=== PATIENT | female | born 1970 | race Caucasian/White ===

== ENCOUNTER 2021-07-14 06:26 | Outpatient (CLI) | payer BC, SELFPAY ==
[2021-07-14 07:38] LABS: Absolute Lymphocyte Count 1.72 X10^3/uL (0.83-4.51); Absolute Neutrophil Count 2.8 X10^3/uL (2.0-7.7); Basophil# 0.04 X10^3/uL; Basophil% 0.8 % (0-1); Eosinophil# 0.31 X10^3/uL; Hematocrit 41.4 % (37-47); Hemoglobin 13.2 g/dL (12.0-15.0); Lymphocyte # 1.72 X10^3/ul (0.83-4.51); Lymphocyte % 33.3 % (19-41); Mean Corp Hgb Conc 31.9 g/dL (32-36); Mean Corpuscular Hgb 29.1 pg (27.0-32.0); Mean Corpuscular Volume 91.4 fL (81-99); Mean Platelet Vol. 9.9 fl (6.2-12.0); Monocyte# 0.26 X10^3/uL; NRBC Flagged by Analyzer 0 % (0-5); Neutrophil # 2.83 X10^3/uL (2.7-7.7); Neutrophil % 54.9 % (47-70); Platelet Count 230 K/mm3 (150-450); RBC Distribution Width CV 12.7 % (11.6-14.6); RBC Distribution Width SD 42.2 fl (35.1-43.9); Red Blood Count 4.53 M/mm3 (4.2-5.4); White Blood Count 5.2 K/mm3 (4.4-11.0)
[2021-07-14 08:21] LABS: ALB/GLOB Ratio 1.1 RATIO (0.9-2.4); AST(SGOT) 13 U/L (15-37); Alanine Aminotransfer ALT/SGPT 21 U/L (13-56); Albumin, Serum 3.5 g/dL (3.2-5.0); Alkaline Phosphatase 63 U/L (45-117); Anion Gap 5 (5-15); BUN 14 mg/dL (7-18); BUN/Creat Ratio 16.8 RATIO (10-20); Chloride 106 mmol/L (98-107); Cholesterol 212 mg/dL (200); Creatinine, Serum 0.84 mg/dL (0.55-1.02); EST Glomerular Filtration Rate 77 mL/min (>60); Est Glom Filt Rate - Afr Amer 93 mL/min (>60); Globulin 3.2 g/dL (2.2-4.2); Glucose 101 mg/dL (74-106); High Density Lipoprotein 85 mg/dL; Potassium 3.9 mmol/L (3.5-5.1); Protein, Total 6.7 g/dL (6.4-8.2); Sodium Level 141 mmol/L (136-145); Thyroid Stim Hormone (TSH) 1.91 uIU/mL (0.358-3.74); Triglycerides 56 mg/dL; Very Low Density Lipoprotein 11 mg/dL (5-40)
== END 2021-07-14 23:59 | disposition home or self-care (01) ==
PROVIDERS: Visit Provider Student in an Organized Health Care Education/Training Program
DX: Z13.220 Encounter for screening for lipoid disorders (principal); Z13.1 Encounter for screening for diabetes mellitus; R53.83 Other fatigue
CPT/HCPCS: 36415; 80053; 80061; 84443; 85025

== ENCOUNTER → 2023-07-20 | Outpatient (CLI) | payer BC, SELFPAY ==
--- OUTSIDE RECORDS SUMMARY | 2023-07-20 09:46 | XMS RPT_ITS | CCD ---
Author Name Unknown Address [address] [place] [address] Organization [facility] Care Team Providers Care Brothel Keeper Name Role Phone Julito Whalen Unavailable Unavailable JULITO WHALEN Primary Care Unavailable Julito Whalen DO Primary Care Provider Allergies Allergy Classification Reported Allergen(s) Allergy Type Date of Onset Reaction(s) Facility (2 sources) HOMEOPATHIC PRODUCTS; Translations: [HOMEOPATHIC PRODUCTS] Propensity to adverse reactions to drug (disorder) 7 [facility] Repository (2 sources) RAGWEED; Translations: [RAGWEED] Propensity to adverse reactions (disorder) 7 [facility] Repository Medications Completed/Discontinued Medications Medication Drug Class(es) Dates Sig (Normalized) Sig (Original) Calcium Carbonate (1 source) calcium carbonat e (CALCIUM 300 ORAL) Take by mouth. 0 Active Problems Active Problems Problem Classification Problem Date Documented Da te Episodic/Chronic Menstrual disorders (2 sources) Dysmenorrhea; Translations: [Dysmenorrhea, unspecified] Onset: 04-11-2007 04-11-2007 Chronic Unclassified (1 source) Low back pain, unspecified; Translations: [Low back pain, unspecified] Onset: 07-05-2022 Past or Other Problems Problem Classification Problem Date Documented Da te Episodic/Chronic Abdominal pain (1 source) Pain in pelvis; Translations: [Pelvic and perineal pain] Episodic Other aftercare (4 sources) Patient encounter status; Translations: [Long-term (current) use of other medications] Episodic Other eye disorders (1 source) Excess skin of eyelid; Translations: [Dermatochalasis] Episodic Other non-traumatic joint disorders (1 source) Ankle pain; Translations: [Pain in joint, ankle and foot] Episodic Residual codes; unclassified (1 source) History of clinical finding in subject; Translations: [Personal history of other specified diseases] Episodic Sprains and strains (1 source) Strain of calf muscle; Translations: [Sprains and strains of other specified sites of knee and leg] Episodic NEGATED: Highlighted row has not occurred!Residual codes; unclassified (1 source) Disease Episodic Results Test Name Value Interpretation Reference Range Facil ity Encounters Encounter Date Encounter Type Care Provider Facility Start: 07-05-2022 ambulatory JULITO WHALEN Facility :[facility] Start: 07-05-2022 End: 07-05-2022 Subsequent hospital visit by physician Xr [facility] 2 [facility] Procedures Date Procedure Procedure Detail Performing Clinician Start: 07-05-2022 Radex spine lumbosac ral minimum 4 views Julito Whalen DO Work Phone: Hernia repair Julito Whalen History of Ear Press ure Equalization Tube, Insertion, Bilaterally Julito Whalen History of Oral Surg zoey Tooth Extraction Julito Whalen Plan of Treatment Date Care Activity Detail Author Start: 06-01-2025 LIPID SCREEN LIPID SCREEN [facility] Start: 06-01-2023 DIABETES SCREEN DIABETES SCREEN [facility] Start: 03-09-2022 Influenza vaccination INFLUENZA (#1) [facility] Start: 07-09-2021 DEPRESSION ASSESSMENT DEPRESSION ASS ESSMENT [facility] Start: 2021 SHINGRIX VACCINE (1 of 2) SHINGRIX V ACCINE (1 of 2) [facility] Start: 2016 COLOGUARD (FIT-DNA) COLOGUARD (FIT-D NA) [facility] Start: 2016 Colonoscopy COLONOSCOPY [facility] Start: 2016 COLORECTAL CANCER SCREENING COLORECTAL CANCER SCREENING [facility] Start: [address] COLONOGRAPHY [facility] Start: 2016 FECAL OCCULT BLOOD FECAL OCCULT BLOO D [facility] Start: 2016 SIGMOIDOSCOPY SIGMOIDOSCOPY [facility] Start: 2011 Mammography MAMMOGRAM [facility] Start: 04-09-2011 HPV TESTING HPV TESTING [facility] Start: 04-09-2011 PAP TESTING PAP TESTING [facility] Start: 1990 Urine microalbumin profile DTAP,TDAP ,TD (1 - Tdap) [facility] Start: 1971 COVID-19 VACCINE (#1) COVID-19 VACCI NE (#1) [facility] Start: 1971 HEPATITIS B (1 of 3 - 3-dose series) HEPATITIS B (1 of 3 - 3-dose series) [facility] Payers Date Payer Category Payer Unknown [id number] 2018 Unknown [employer] PPO OOS [id number] 2018-Present [phone] [address] [place] [address] PPO [id number] Social History Date Type Detail Facility Tobacco smoking status NHIS Never smoked tobacco [facility] Work Phone: Start: 02-23-2022 Alcohol intake Current non-dr cut pressman of alcohol (finding) [facility] Start: 1970 Sex Assigned At Not on file [facility]: [facility] Work Phone: Functional Status Date Assessment Result Facility NEGATED: Highlighted row Functional performance Functional status health issues are not documented [facility] Work Phone: Mental Status Date Assessment Result Facility NEGATED: Highlighted row Cognitive function [Interpretation] Cognitive status health issues are not documented Disease [facility] Work Phone: Progress note 07-05-2022 Note Date & Type Note Facility 07-05-2022 Note HNO ID: [id number] Author: Candy Sagastume RT(R) Service: Radiology Author Type: Technologist Type: Progress Notes Filed: 07/05/2022 8:14 AM Note Text: Radiology Service Progress Note PATIENT NAME: Mona Phan DATE OF SERVICE: July 05, 2022 TIME: 8:13 AM PATIENT IDENTITY VERIFICATION COMPLETED USING TWO (2) IDENTIFIERS: Name and Date of confirmed by patient verbally. FALL SCREENING: Has the patient had 2 falls in the last year or 1 fall with injury or currently using an Ambulatory Assistive Device (Walker, Cane, Wheelchair, Crutches, etc.)? No PATIENT GENDER DATA: Female. status: : No status: NO. PATIENT RELEVANT IMPLANT DATA REVIEWED: Not Applicable RADIOLOGY DEPARTMENT: General X-ray: Exam(s) Completed: Spine X-Ray(s): Lumbar AP / LAT / L5-S1 / OBL PERIPHERAL IV DATA: Not applicable SIGNED BY: RT Patrick(R) July 05, 2022 8:13 AM [facility] History of Present illness Narrative 07-05-2022 RT Patrick(R) - 07/05/2022 7:45 AM EST Note Date & Type Note Facility 07-05-2022 History of Presen t illness Narrative Radiology Service Progress Note PATIENT NAME: Mona Phan DATE OF SERVICE: July 05, 2022 TIME: 8:13 AM PATIENT IDENTITY VERIFICATION COMPLETED USING TWO (2) IDENTIFIERS: Name and Date of confirmed by patient verbally. FALL SCREENING: Has the patient had 2 falls in the last year or 1 fall with injury or currently using an Ambulatory Assistive Device (Walker, Cane, Wheelchair, Crutches, etc.)? No PATIENT GENDER DATA: Female. status: : No status: NO. PATIENT RELEVANT IMPLANT DATA REVIEWED: Not Applicable RADIOLOGY DEPARTMENT: General X-ray: Exam(s) Completed: Spine X-Ray(s): Lumbar AP / LAT / L5-S1 / OBL PERIPHERAL IV DATA: Not applicable SIGNED BY: RT Patrick(R) July 05, 2022 8:13 AM documented in this encounter [facility] Progress note 07-06-2021 Note Date & Type Note Facility 07-06-2021 Note HNO ID: [id number] Author: Julito Whalen, DO Service: ? Author Type: Physician Type: Progress Notes Filed: 07/06/2021 4:37 PM Note Text: 07/06/2021 Subjective HPI: Mona Phan is a 51 year old female who presents today for left ear issue. Ear feels full like fluid in it. No pain or drainage. No fever/chills. Has noticed a humming noise now. PAST MEDICAL HISTORY Diagnosis Date - Excessive or frequent menstruation Heavy periods - Generalized anxiety disorder Anxiety, Generalized ALLERGIES Allergen Reactions - Hayfever [Homeopath* - Ragweed Current Medications: multivit with iron,minerals (MULTIVITAMIN AND MINERALS ORAL) Take by mouth. gonzalo primrose/linoleic/g-lenic (PRIMROSE OIL ORAL) Take by mouth. calcium carbonate (CALCIUM 300 ORAL) Take by mouth. Lactobac no.41/Bifidobact no.7 (PROBIOTIC-10 ORAL) Take by mouth. COMPOUNDED PRESCRIPTION Mineral Blend, 956 mg, Take one(1) tablet daily. OTC NUTRITIONAL SUPPLEMENT Emzyme Blend 1-2 caps daily vitamin b complex (B COMPLEX 1) ORAL Tab Take one(1) tablet daily. Flaxseed MUCOUS MEM Liqd 1 TBL daily Review of Systems Objective LMP 03/14/2007 Physical Exam ASSESSMENT/PLAN: 1. Eustachian tube dysfunction, left - ICD9: 381.81, ICD10: H69.82 Flonase Informed consent was obtained from the patient for the use of a video conferencing platform to conduct this visit. -The method of the face to face (video contact ): [email or web address] - Patient location: Home - Reason for the visit: Total time spent: 20min Julito Whalen DO Follow-up: No follow-ups on file. [place] Progress note 10-06-2020 Note Date & Type Note Facility 10-06-2020 Note HNO ID: [id number] Author: Sowmya Callejas) Michael Service: ? Author Type: Physician Communication Manager Type: Progress Notes Filed: 10/06/2020 3:43 PM Note Text: SKIN EXAM NEW CC: This patient is a 50 year old female. Patient presents with: Derm Problem: spot of concern HPI: Presents today for GOC -right inner thigh area -noticed it last week -put apple cider vinegar on it which irritated it - used for 5 days -discontinued using on Sunday -itchy from the vinegar, no pain, no bleeding Also asks about two spots on her face that are asymptomatic, a wart on her right 2nd toe x 2 years, and a pink spot on the back of her right thigh that is asymptomatic. -has tried OTC wart removal products on right great toe with some improvement -Personal history of skin cancer: No -Personal History of Atypical Nevi: No -History of blistering sunburns:Yes -Family history of skin cancer: Yes, father - unknown type SOC: Social History Tobacco Use - Smoking status: Never Smoker Substance Use Topics - Alcohol use: No - Drug use: No MEDS: Current outpatient prescriptions: Current Outpatient Medications on File Prior to Visit Medication Sig - COMPOUNDED PRESCRIPTION Mineral Blend, 956 mg, Take one(1) tablet daily. - OTC NUTRITIONAL SUPPLEMENT Emzyme Blend 1-2 caps daily - vitamin b complex (B COMPLEX 1) ORAL Tab Take one(1) tablet daily. - Flaxseed MUCOUS MEM Liqd 1 TBL daily No current facility-administered medications on file prior to visit. ALLERGY: ALLERGIES Allergen Reactions - Hayfever [Homeopath* - Ragweed PAST MEDICAL HISTORY: No chronic skin disease or skin cancer FAMILY HISTORY: No chronic skin disease or skin cancer REVIEW OF SYSTEMS: Patient feels well and denies any recent fevers, chills, or nightsweats. PHYSICAL EXAM: The patient is a pleasant female in no distress. Patient is healthy, well developed, well nourished and in otherwise good health. she is alert and oriented x 3. A skin exam was done of the face, right lower extremity, and right foot Briceño Skin Type: II IMPRESSION: Endophytic verrucal papule on the right plantar great toe Brown and pink stuck on plaque on the right anteromedial thigh Firm pink papule on the right posterior thigh with +dimple sign Light kinsey stuck on papules on the face A/P: 1) Verruca Plantaris, Disturbance of Skin Sensation- recommend treatment with liquid nitrogen. Treatment r/b/o discussed with patient. Patient agrees and wishes to continue. Lesions cleaned and prepped with alcohol. Sharp debridement of warts to base with 15 blade. Cryosurgery of Non-Malignant Lesion(s) Risks, benefits, alternatives and personnel required for cryosurgery reviewed with patient. Pt verbalizes understanding and wishes to proceed. Derm Physician Communication Manager: Sowmya Rodriguez PA-C Cryosurgery performed with Liquid Nitrogen via cryostat spray gun to Warts . 1 lesion(s) treated. Patient tolerated well. Wound care instructions provided, pt verbalizes understanding. Recommend applying 40% Salicylic Acid daily at bedtime and following up in 3-4 weeks. 2) Inflamed Seborrheic Keratosis, Pruritus of Skin- recommend treatment with liquid nitrogen PROCEDURE: Cryosurgery of non-malignant lesion(s) Risks, benefits, alternatives and personnel required for cryosurgery reviewed with patient. Pt verbalizes understanding and wishes to proceed. Cryosurgery performed with Liquid Nitrogen via cryostat spray gun to Inflamed Seborrheic Keratoses . 1 lesions treated. Wound care instructions provided, pt verbalizes understanding. Sowmya Rodriguez PA-C 3) Seborrheic Keratoses- Recommend high SPF sunscreens and reapplication. Reassurance on benign nature of lesions and recommend routine self-examinations. Sunscreen (SPF 30 or higher) and sun protection reviewed. The ABCDEs of melanoma were reviewed with the patient and the importance of routine self-examination of moles was emphasized. Should any areas change in size, shape or color, bleed or become tender, the patient will contact the office for evaluation sooner than their interval appointment. Patient verbalizes understanding and agrees with treatment plan. Follow up for FBSE and wart recheck in 4 weeks and as needed Sowmya Rodriguez PA-C The documentation for this note was completed by Brittany Galindo Ma acting as scribe for Sowmya Rodriguez PA-C. October 06, 2020 11:09 AM. I agree with the Chief Complaint, ROS, and Past Histories independently gathered by the clinical patient support tech and the remaining scribed note accurately describes my personal service to the patient. [place] Instructions Note Date & Type Note Facility [facility] Work Phone: Summary Purpose Family History Unknown Family Member Name Dates Details Family history of heart fail ure(V17.49, Z82.49) Comments:Family History Status:Active Family history of hypertensi on(V17.49, Z82.49) Comments:Family History Status:Active Family history of malignant neoplasm(V16.9, Z80.9) Comments:Family History Status:Active Advance Directives No Advanced Directives Records FoundNo Advanced Directives Records FoundNo Advanced Directives Records Found Additional Source Comments INFORMATION SOURCE (unrecogn ized section and content) DATE CREATED AUTHOR AUTHOR'S ORGANIZ ATION 08/01/2021 [place] DATE CREATED AUTHOR AUTHOR'S ORGANIZ ATION 07/05/2022 [facility] Source Comments (unrecognize d section and content) In the event this informatio n is protected by the Federal Confidentiality of Alcohol and Drug Abuse Patient Records regulations: The Federal rules restrict any use of the information to criminally investigate or prosecute any alcohol or drug abuse patient.[facility] Care Teams (unrecognized sec tion and content) FOR RECORDS PERTAINING TO PATIENTS WHO ARE OR HAVE BEEN ENROLLED IN A CHEMICAL DEPENDENCY/SUBSTANCEABUSE PROGRAM, SOME INFORMATION MAY BE OMITTED. This clinical summary was aggregated from multiple sources. Caution should be exercised in using it in the provision of clinical care. This summary normalizes information from multiple sources, and as a consequence, information in this document may materially change the coding, format and clinical context of patient data. In addition, data may be omitted in some cases. CLINICAL DECISIONS SHOULD BE BASED ON THE PRIMARY CLINICAL RECORDS. [facility] [employer] [facility]. provides no warranty or guarantee of the accuracy or completeness of information in this document.
[2023-07-20 09:59] LABS: Absolute Lymphocyte Count 1.74 X10^3/uL (0.83-4.51); Absolute Neutrophil Count 3.8 X10^3/uL (2.0-7.7); Basophil# 0.05 X10^3/uL; Basophil% 0.8 % (0-1); Eosinophil# 0.23 X10^3/uL; Eosinophils% 3.7 % (0-5); Hemoglobin 13.9 g/dL (12.0-15.0); Lymphocyte # 1.74 X10^3/ul (0.83-4.51); Lymphocyte % 28.2 % (19-41); Mean Corp Hgb Conc 31.6 g/dL (32-36); Mean Corpuscular Hgb 29.2 pg (27.0-32.0); Mean Corpuscular Volume 92.4 fL (81-99); Mean Platelet Vol. 9.8 fl (6.2-12.0); Monocyte# 0.35 X10^3/uL; Monocyte% 5.7 % (0-10); NRBC Flagged by Analyzer 0 % (0-5); Neutrophil # 3.79 X10^3/uL (2.7-7.7); Neutrophil % 61.3 % (47-70); Platelet Count 248 K/mm3 (150-450); RBC Distribution Width CV 13.7 % (11.6-14.6); RBC Distribution Width SD 46.7 fl (35.1-43.9); Red Blood Count 4.76 M/mm3 (4.2-5.4); White Blood Count 6.2 K/mm3 (4.4-11.0)
[2023-07-20 10:32] LABS: Vitamin B12 618 pg/mL (211-911); Vitamin D,25 Hydroxy 46.5 ng/mL
[2023-07-20 10:48] LABS: ALB/GLOB Ratio 1.3 RATIO (0.9-2.4); AST(SGOT) 21 U/L (15-37); Alanine Aminotransfer ALT/SGPT 28 U/L (13-56); Albumin, Serum 3.9 g/dL (3.2-5.0); Alkaline Phosphatase 67 U/L (45-117); Anion Gap 5 (5-15); BUN 14 mg/dL (7-18); BUN/Creat Ratio 16.2 RATIO (10-20); Chloride 105 mmol/L (98-107); Cholesterol 227 mg/dL (200); Creatinine, Serum 0.86 mg/dL (0.55-1.02); EST Glomerular Filtration Rate 73 mL/min (>60); Est Glom Filt Rate - Afr Amer 88 mL/min (>60); Globulin 3.1 g/dL (2.2-4.2); Glucose 99 mg/dL (74-106); High Density Lipoprotein 107 mg/dL; Potassium 3.7 mmol/L (3.5-5.1); Sodium Level 140 mmol/L (136-145); Triglycerides 47 mg/dL; Very Low Density Lipoprotein 9 mg/dL (5-40)
== END | disposition home or self-care (01) ==
LOC: LAB 09:27
PROVIDERS: PCP Student in an Organized Health Care Education/Training Program; Referring Provider Student in an Organized Health Care Education/Training Program; Visit Provider Student in an Organized Health Care Education/Training Program
DX: Z00.00 Encounter for general adult medical examination without abnormal findings (principal); R53.83 Other fatigue; E53.8 Deficiency of other specified B group vitamins; E55.9 Vitamin D deficiency, unspecified
CPT/HCPCS: 36415; 80053; 80061; 82306; 82607; 84443; 85025

== ENCOUNTER → 2024-07-04 | Outpatient (CLI) | payer BC, SELFPAY ==
[2024-07-04 11:58] LABS: Absolute Lymphocyte Count 1.45 X10^3/uL (0.83-4.51); Absolute Neutrophil Count 3.6 X10^3/uL (2.0-7.7); Basophil# 0.05 X10^3/uL; Basophil% 0.9 % (0-1); Eosinophil# 0.19 X10^3/uL; Eosinophils% 3.4 % (0-5); Hematocrit 41.6 % (37-47); Hemoglobin 13.9 g/dL (12.0-15.0); Lymphocyte # 1.45 X10^3/ul (0.83-4.51); Lymphocyte % 25.9 % (19-41); Mean Corp Hgb Conc 33.4 g/dL (32-36); Mean Corpuscular Hgb 29.9 pg (27.0-32.0); Mean Corpuscular Volume 89.5 fL (81-99); Mean Platelet Vol. 9.8 fl (6.2-12.0); Monocyte% 5.4 % (0-10); NRBC Flagged by Analyzer 0 % (0-5); Neutrophil # 3.59 X10^3/uL (2.7-7.7); Platelet Count 264 K/mm3 (150-450); RBC Distribution Width CV 13.2 % (11.6-14.6); RBC Distribution Width SD 43.1 fl (35.1-43.9); Red Blood Count 4.65 M/mm3 (4.2-5.4); White Blood Count 5.6 K/mm3 (4.4-11.0)
[2024-07-04 12:46] LABS: ALB/GLOB Ratio 1.1 RATIO (0.9-2.4); AST(SGOT) 23 U/L (15-37); Alanine Aminotransfer ALT/SGPT 28 U/L (13-56); Albumin, Serum 3.7 g/dL (3.2-5.0); Alkaline Phosphatase 71 U/L (45-117); Anion Gap 2 (5-15); BUN 13 mg/dL (7-18); Calcium,Total 9.2 mg/dL (8.5-10.1); Chloride 106 mmol/L (98-107); Cholesterol 210 mg/dL (200); Creatinine, Serum 0.93 mg/dL (0.55-1.02); EST Glomerular Filtration Rate 67 mL/min (>60); Est Glom Filt Rate - Afr Amer 81 mL/min (>60); Estradiol 51.9 pg/mL; Follicle Stimulating Hormone 81.1 mIU/mL; Globulin 3.4 g/dL (2.2-4.2); Glucose 99 mg/dL (74-106); High Density Lipoprotein 83 mg/dL; Protein, Total 7.1 g/dL (6.4-8.2); Sodium Level 137 mmol/L (136-145); Triglycerides 65 mg/dL; Very Low Density Lipoprotein 13 mg/dL (5-40)
[2024-07-10 10:07] LABS: Sex Hormone-binding Globulin 93.7 nmol/L (17.3-125.0); Testosterone, % Free 1.91 % (0.50-2.80); Testosterone, Total 21 ng/dL (4-50)
== END | disposition home or self-care (01) ==
PROVIDERS: PCP Student in an Organized Health Care Education/Training Program; Referring Provider Student in an Organized Health Care Education/Training Program; Visit Provider Student in an Organized Health Care Education/Training Program
DX: Z00.00 Encounter for general adult medical examination without abnormal findings (principal); N95.1 Menopausal and female climacteric states; R53.83 Other fatigue
CPT/HCPCS: 36415; 80053; 80061; 82670; 83001; 84270; 84402; 84403; 84443; 85025